=== PATIENT | male | born 1945 | race Caucasian/White ===

== ENCOUNTER 2020-08-05 22:26 | Emergency (ER) | payer MEDICARE ==
[~2020-08-05] VITALS: Ht 167.6 cm; Wt 71.8 kg
[2020-08-05 22:28] VITALS: Ht 167.6 cm; Wt 71.8 kg
[2020-08-05 23:22] LABS: BASOPHILS 0.4 % (0-2); EOSINOPHILS 0.9 % (0-7); HEMATOCRIT 47.1 % (42.0-54.0); IMMATURE GRANULOCYTES 0.1 % (0-5); LYMPHOCYTES 26.8 % (15-50); MCH 30.9 pg (26.0-34.0); MCV 90.9 fL (80.0-100.0); MEAN PLATELET VOLUME 9.7 fL (7.4-10.4); MONOCYTES 5.5 % (2-11); NEUTROPHILS 66.3 % (40-80); PLATELET COUNT 228 10x3/uL (130-400); RBC 5.18 10x6/uL (4.20-6.10); RDW 13.3 % (11.5-14.5); WBC 6.7 10x3/uL (4.8-10.8)
[2020-08-05 23:28] LABS: CALC OSMOLALITY 279 mosm/kg (275-300); CALCIUM 9.2 mg/dL (8.5-10.1); CARBON DIOXIDE 29.5 mmol/L (21.0-32.0); CHLORIDE - SERUM 102 mmol/L (98-107); CREATININE - SERUM 1.3 mg/dL (0.6-1.3); GLUCOSE 92 mg/dL (74-106); POTASSIUM - SERUM 3.7 mmol/L (3.5-5.1); SODIUM 140 mmol/L (136-145); UREA NITROGEN 15 mg/dL (7-18); eGFR NON AFRICAN AMERICAN 58 mL/min (90-120)
[2020-08-05 23:29] LABS: APTT 29.6 SECONDS (22.8-39.4); INR 1.07 (0.85-1.17); PROTIME 13.9 SECONDS (11.6-15.0)
[2020-08-05 23:30] LABS: D-DIMER-QUANTITATIVE < 0.27 ug/mLFEU (0.20-0.54)
[2020-08-05 23:44] LABS: ALKALINE PHOSPHATASE 55 U/L (30-120); ALT (SGPT) 24 U/L (10-68); BILIRUBIN - TOTAL 0.37 mg/dL (0.2-1.3); CKMB 2.4 U/L (0.0-3.6); CREATINE KINASE 177 UL (21-232); MAGNESIUM - SERUM 2.2 mg/dL (1.8-2.4); PROTEIN - SERUM 7.6 g/dL (6.4-8.2)
[2020-08-05 23:50] LABS: TROPONIN-I < 0.017 ng/mL (0.000-0.060)
[2020-08-06 01:58] VITALS: BP 144/63
== END 2020-08-06 01:59 | disposition home or self-care (01) ==
LOC: D.ER 22:26
PROVIDERS: Family Medicine
DX: R55 Syncope and collapse (principal); S00.31XA Abrasion of nose, initial encounter; R25.2 Cramp and spasm; W19.XXXA Unspecified fall, initial encounter; Y93.9 Activity, unspecified; Y92.9 Unspecified place or not applicable